=== PATIENT | male | born 1950 | race Two or more races ===

== ENCOUNTER 2019-09-15 10:21 | Outpatient (CLI) | payer MEDICARE, MEDICAID ==
[~2019-09-15 10:21] MED LIST: ATORVASTATIN CA40 MG ORAL; BENICAR HCT 401 EACH ORAL; BRINTELLIX10 MG PO; CYCLOBENZAPRINE10 MG ORAL; GABAPENTIN100 MG ORAL; IBUPROFEN200 MG ORAL; TRADJENTA5 MG PO
[2019-09-15 10:30] VITALS: BP 126/76
[2019-09-15] MEDS ORDERED: AMLODIPINE BESY10 MG ORAL (13:38)
[2019-09-15] MEDS ORDERED: VITAMIN C500 M1 ORAL (13:38)
[2019-09-15] MEDS ORDERED: FIBER0.52 GM PO (13:38)
[2019-09-15] MEDS ORDERED: MELOXICAM15 MG PO (13:38)
--- NOTE | 2019-09-15 21:00 | Consultation ---
DATE OF CONSULTATION: 09/15/2019 CONSULTING PHYSICIAN: Silver Granda M.D. CHIEF COMPLAINT: Abdominal pain. HISTORY OF PRESENT ILLNESS: This is a 69-year-old male, very anxious, who came to the hospital very anxious that he is having GI issues. Apparently, one of his family members of colon cancer and he is worried that he might have a colon cancer. He complained of gas, abdominal pain, bloating, acid reflux, bilateral lower quadrant abdominal pain, stabbing pain. PAST MEDICAL HISTORY: 1. Hypercholesteremia. 2. Diverticulosis. 3. Gastritis. 4. GERD. 5. Arthritis. 6. High blood pressure. ALLERGIES: No known drug allergies. MEDICATIONS: Please see medication reconciliation list. FAMILY HISTORY: Noncontributory. SOCIAL HISTORY: The patient denies any prior history of alcohol use or IV drug use, but he is a smoker, smokes 1 pack per day. REVIEW OF SYSTEMS: A 10-point review of systems was performed and pertinent positives in the HPI. PHYSICAL EXAMINATION: VITAL SIGNS: Temperature 98.4, blood pressure 126/76, pulse is 74, and respirations 20. HEENT: Normocephalic and atraumatic. Sclerae anicteric. NECK: Supple. No evidence of obvious lymphadenopathy. CARDIOVASCULAR: Regular rhythm. Plus S1, S2. LUNGS: Clear to auscultation bilaterally. ABDOMEN: Positive bowel sounds. Soft and nontender. No rebound. No guarding. No peritoneal sign. EXTREMITIES: No cyanosis, no clubbing, no edema. ASSESSMENT AND PLAN: This is a 69-year-old male with past medical history of GERD, gastritis, diverticulosis, who presented with complaint of abdominal pain, anxious, worried that he might have a colon malignancy. The patient was reassured. Given his age of 69 and recurrent abdominal pain, we will schedule him to get an endoscopy and colonoscopy. The patient was given instruction for colonoscopy. The prep was explained to him and he is planning to come this Saturday. Silver Granda M.D. DR: Rachel JOB#: [id number] CC:
== END 2019-09-15 12:51 | disposition home or self-care (01) ==
LOC: PAN 10:21
DX: R10.9 Unspecified abdominal pain (principal); E78.00 Pure hypercholesterolemia, unspecified; K57.90 Diverticulosis of intestine, part unspecified, without perforation or abscess without bleeding; K21.9 Gastro-esophageal reflux disease without esophagitis; M19.90 Unspecified osteoarthritis, unspecified site; R14.0 Abdominal distension (gaseous)
CPT/HCPCS: 99212

== ENCOUNTER 2019-09-18 09:56 | Day surgery (SDC) | payer MEDICARE, MEDICAID ==
[~2019-09-18] VITALS: Ht 170.2 cm; Wt 70.3 kg
[2019-09-18] VITALS (10 sets, daily range): BP systolic 115–143; BP diastolic 62–89
[~2019-09-18 09:56] MED LIST changes: +AMLODIPINE BESY10 MG ORAL; +FIBER0.52 GM PO; +MELOXICAM15 MG PO; +VITAMIN C500 M1 ORAL
[2019-09-18] MEDS ORDERED: Lidocaine 1% MPF 10mg/ml 5ml ONE (11:00)
[2019-09-18] MEDS ORDERED: LR 1000ml ONE (11:00)
[2019-09-18] MEDS ORDERED: Propofol 200mg/20ml IV ONE (11:00)
--- NOTE | 2019-09-18 11:09 | Short Stay Surgery H&P ---
History of Present Illness History of Present Illness Chief Complaint see recent office note HPI Paul John is a 69 year old male who was admitted on for Gerd, Colon Screening Patient History Allergies: Coded Allergies: No Known Allergies (Unverified , 09/28/15) Medication History Scheduled Amlodipine Besylate* (Amlodipine Besylate*), 10 MG ORAL DAILY, (Reported) Ascorbic Acid* (Vitamin C*), 1,000 MG ORAL DAILY, (Reported) Atorvastatin Calcium* (Atorvastatin Calcium*), 40 MG ORAL BEDTIME, (Reported) Linagliptin (Tradjenta), 5 MG PO DAILY, (Reported) Meloxicam* (Meloxicam*), 15 MG PO DAILY, (Reported) Olmesartan/Hydrochlorothiazide 40-12.5MG (Benicar Hct 40-12.5 Mg Tablet), 1 TAB ORAL DAILY, (Reported) Psyllium Husk (Fiber), 0.52 GM PO DAILY, (Reported) Vortioxetine Hydrobromide (Brintellix), 10 MG PO DAILY, (Reported) Discontinued Medications Cyclobenzaprine Hcl* (Flexeril*), 5 MG ORAL DAILY, (Reported) Discontinued Reason: MD discontinued med Gabapentin* (Gabapentin*), 100 MG ORAL BID, (Reported) Discontinued Reason: MD discontinued med Ibuprofen (Ibuprofen*), 800 MG ORAL DAILY, (Reported) Discontinued Reason: MD discontinued med Physical Exam Vital Signs Last Vital Signs Date Time Temp Pulse Resp B/P (MAP) Pulse Ox O2 Delivery O2 Flow Rate FiO2 09/18/19 10:52 Room Air 09/18/19 10:36 97.9 74 20 125/62 100 Plan Attestation Are the patient's medical conditions optimized for surgery? Silver Granda MD Sep 18, 2019 11:09
--- NOTE | 2019-09-18 11:09 | Pre-Procedure Note/Attestation ---
Pre-Procedure Note/Attestation Complete Prior to Procedure Planned Procedure: not applicable Procedure Narrative: esophagogastroduodenoscopy and colonoscopy Indications for Procedure Pre-Operative Diagnosis: wt loss Attestation I attest that I discussed the nature of the procedure; its benefits; risks and complications; and alternatives (and the risks and benefits of such alternatives ), prior to the procedure, with the patient (or the patient's legal corporate sales representative). I attest that, if there was a reasonable possibility of needing a blood transfusion, the patient (or the patient's legal corporate sales representative) was given the [facility] standardized written summary, pursuant to the [employer] [place] Blood Safety Act ([place] Health and Safety Code # 1645, as amended). I attest that I re-evaluated the patient just prior to the surgery and that there has been no change in the patient's H&P, except as documented below: Silver Granda MD Sep 18, 2019 11:09
--- NOTE | 2019-09-18 11:23 | Anethesia Preoperative Eval ---
Anesthesia Pre-op PMH/ROS General Date of Evaluation: Sep 18, 2019 Time of Evaluation: 11:01 Anesthesiologist: KARYNA Castro ASA Score: ASA 2 Mallampati Score Class I : Soft palate, uvula, fauces, pillars visible Class II: Soft palate, uvula, fauces visible Class III: Soft palate, base of uvula visible Class IV: Only hard plate visible Mallampati Classification: Class II Surgeon: Jesus Alberto Diagnosis: GERD, colon screening Surgical Procedure: EGD, colonosocpy Anesthesia History: none Social History: current smoker Allergies: Coded Allergies: No Known Allergies (Unverified , 09/28/15) Patient NPO?: Yes NPO Date: Sep 18, 2019 NPO Time: 00:00 Past Medical History Cardiovascular: Reports: HTN, other - Hypercholesterolemia; Denies: CAD, VT, valve dz, arrhythmia Pulmonary: Denies: asthma, COPD, PEPE, other Gastrointestinal/Genitourinary: Reports: GERD; Denies: CRI, ESRD, other Neurologic/Psychiatric: Reports: TIA, other - fibromyalgia; TIA; Denies: dementia, CVA, depression/anxiety Endocrine: Reports: DM - borderline, not on meds; Denies: hypothyroidism, steroids, other HEENT: Denies: cataract (L), cataract (R), glaucoma, AGDAAGUX (L), AGDAAGUX (R), other Hematology/Immune: Denies: anemia, DVT, bleeding disorder, other Musculoskeletal/Integumentary: Reports: other - chronic loewr back pain; Denies: OA, RA, DJD, DDD, edema PMH Narrative: as noted above PSxH Narrative: cholecystectomy, hiatal hernia repair Anesthesia Pre-op Phys. Exam Physician Exam Last Vital Signs Date Time Temp Pulse Resp B/P (MAP) Pulse Ox O2 Delivery O2 Flow Rate FiO2 09/18/19 10:52 Room Air 09/18/19 10:36 97.9 74 20 125/62 100 Constitutional: NAD Neurologic: other - alert & oriented x 3 Cardiovascular: RRR Respiratory: CTA Gastrointestinal: S/NT/ND Airway Exam Mallampati Score: Class II Neck: FROM TMD: > 3 FB ROM: full Teeth: missing, broken Dentures: no upper, no lower Anesthesia Pre-op A/P Studies Pre-op Studies: EKG - NSR, left fascicular block Risk Assessment & Plan Assessment: ASA 2, ok to proceed Plan: MAC Status Change Before Surgery: No Pre-Antibiotics Given Within 1 Hr of Incision: Paloma Nicholas CRNA Sep 18, 2019 11:23
--- NOTE | 2019-09-18 11:32 | Immediate Post-Op Evaluation ---
Immediate Post-Op Evalulation Immediate Post-Op Evalulation Procedure: EGD, colonoscopy, polypectomy Date of Evaluation: Sep 18, 2019 Time of Evaluation: 11:51 IV Fluids: LR 500 ml Blood Pressure Systolic: 106 Blood Pressure Diastolic: 71 Pulse Rate: 83 Respiratory Rate: 16 O2 Sat by Pulse Oximetry: 99 Temperature (Fahrenheit): 97.6 Pain Score (1-10): 0 Nausea: No Vomiting: No Complications none Patient Status: awake, reacts, patent Hydration Status: adequate Given Within 1 Hr of Incision: Paloma Nicholas CRNA Sep 18, 2019 11:32
--- NOTE | 2019-09-18 11:52 | 48 Hour Post Anesthesia Eval ---
Post Anesthesia Evaluation Procedure: EGD, colonoscopy, polypectomy Date of Evaluation: Sep 18, 2019 Time of Evaluation: 11:52 Blood Pressure Systolic: 115 0: 70 Pulse Rate: 70 Respiratory Rate: 17 Temperature (Fahrenheit): 97.6 O2 Sat by Pulse Oximetry: 100 Airway: patent Nausea: No Vomiting: No Pain Intensity: 0 Hydration Status: adequate Cardiopulmonary Status: stable Mental Status/LOC: patient returned to baseline Follow-up Care/Observations: per GI Post-Anesthesia Complications: none Follow-up care needed: N/A Paloma Barfield CRNA Sep 18, 2019 11:52
--- NOTE | 2019-09-18 11:52 | Endoscopy Procedure Note ---
Endoscopy Procedure Note General Indication for Procedure: wt loss Procedures Performed: EGD, colonoscopy Operative Findings/Diagnosis: diverticulosis, 3 polyps Specimen: yes Pt Tolerated Procedure Well: Yes Estimated Blood Loss: none Anesthesia Anesthesiologist: ana luisa Anesthesia: MAC Inserted Devices Implant(s) used?: No Quality Quality of Bowel Preparation: Good Did scope reach the cecum?: Yes Was there any complications?: No GI Core Measures 50 yrs or older w/o bx or poly: No 10yrs. F/U recommended: Yes If not recommended, why?: Above average risk 18 years or older w/prev. colo: No Silver Granda MD Sep 18, 2019 11:52
--- NOTE | 2019-09-18 17:00 | Procedure Note ---
DATE OF PROCEDURE: 09/18/2019 SURGEON: Silver Granda M.D. PROCEDURE: Upper endoscopy with biopsy and colonoscopy with biopsy. ANESTHESIA: Per Paloma TRONCOSO. INSTRUMENT: Olympus adult flexible upper endoscope and colonoscope. INDICATIONS: Screening colonoscopy evaluation, weight loss, GERD, and abdominal pain. REASON FOR PROCEDURE: The procedure, risks, benefits, and possible consequences, including hemorrhage, aspiration, perforation and infection, and alternative treatments, were explained to the patient/legal guardian by Dr. Silver Granda and the patient/legal guardian understood and accepted these risks. PROCEDURE IN DETAIL: After informed consent was obtained and the patient was adequately sedated, Olympus upper endoscope was advanced from mouth into the second portion of the duodenum and retroflexion was performed in the stomach. The patient has evidence of two ulcerations in the esophagus, one right at the GE junction and one few centimeter above the GE junction. No significant other esophagitis. Biopsy from one of the esophageal ulcers were obtained. In the stomach, there was diffuse gastritis. Random biopsy from antrum was obtained to rule out H. pylori infection. At this time, the upper endoscope was retrieved and the patient was turned over for colonoscopy. First, rectal exam was performed, which was positive for internal hemorrhoids. Then, the scope was advanced from rectum into the cecum documented by appendix orifice, ileocecal valve, and right upper quadrant palpation. Quality of prep was very good. The patient had evidence of diverticulosis, both in the right and left colon, more significant in the sigmoid area. The patient had three polyps, one in the ascending and two in the rectosigmoid, all removed with cold biopsy forceps technique. Retroflexion of the rectum showed evidence of internal hemorrhoids. SUMMARY OF FINDINGS: 1. Two esophageal ulcerations, status post biopsy. 2. Gastritis, status post biopsy. 3. Three colonic polyps removed. 4. Diverticulosis. 5. Internal hemorrhoids. RECOMMENDATIONS: 1. Follow biopsy results and treat accordingly. 2. We recommend repeat colonoscopy in three years given three polyps. Silver Granda M.D. DR: HEATHER JOB#: [id number] CC:
== END 2019-09-18 13:05 | disposition home or self-care (01) ==
LOC: GAS 09:56
DX: Z12.11 Encounter for screening for malignant neoplasm of colon (principal); K21.9 Gastro-esophageal reflux disease without esophagitis; R63.4 Abnormal weight loss; R10.9 Unspecified abdominal pain; K22.10 Ulcer of esophagus without bleeding; K29.70 Gastritis, unspecified, without bleeding; K63.5 Polyp of colon; K57.90 Diverticulosis of intestine, part unspecified, without perforation or abscess without bleeding; K64.8 Other hemorrhoids; D12.2 Benign neoplasm of ascending colon
CPT/HCPCS: 43239; 45380; 93005; J2704; J7120; 94003; 94150

== ENCOUNTER 2019-10-01 13:32 | Outpatient (CLI) | payer MEDICARE, MEDICAID ==
[2019-10-01 13:48] VITALS: BP 123/65
--- NOTE | 2019-10-01 14:11 | General Progress Note ---
Assessment/Plan Assessment/Plan: SUMMARY OF FINDINGS: 1. Two esophageal ulcerations, status post biopsy. 2. Gastritis, status post biopsy. 3. Three colonic polyps removed. 4. Diverticulosis. 5. Internal hemorrhoids. RECOMMENDATIONS: 1. biopsy results reviewed 2. We recommend repeat colonoscopy in three years given three polyps. plan roach CT to eval for wt loss Subjective ROS Limited/Unobtainable: Yes Allergies: Coded Allergies: No Known Allergies (Unverified , 09/28/15) Objective Last 24 Hour Vital Signs Date Time Temp Pulse Resp B/P (MAP) Pulse Ox O2 Delivery O2 Flow Rate FiO2 10/01/19 13:48 98.6 75 16 123/65 (84) 95 General Appearance: alert EENT: normal ENT inspection Neck: supple Cardiovascular: normal rate Respiratory/Chest: decreased breath sounds Abdomen: normal bowel sounds, non tender, soft Extremities: non-tender Silver Granda MD Oct 01, 2019 14:11
== END 2019-10-01 15:32 | disposition home or self-care (01) ==
LOC: PAN 13:32
DX: K22.10 Ulcer of esophagus without bleeding (principal); K29.70 Gastritis, unspecified, without bleeding; K63.5 Polyp of colon; K57.90 Diverticulosis of intestine, part unspecified, without perforation or abscess without bleeding; K64.8 Other hemorrhoids
CPT/HCPCS: 99212

== ENCOUNTER → 2019-10-07 | Outpatient (CLI) | payer MEDICARE, MEDICAID ==
[2019-10-07 08:56] LABS: ANION GAP 7 mmol/L (5-15); BLOOD UREA NITROGEN 12 mg/dL (7-18); CALCIUM 9.3 MG/DL (8.5-10.1); CARBON DIOXIDE 29 MMOL/L (21-32); CHLORIDE 103 MMOL/L (98-107); CREATININE 1.2 MG/DL (0.55-1.30); POTASSIUM 4.3 MMOL/L (3.5-5.1); SODIUM 138 MMOL/L (136-145)
--- NOTE | 2019-10-08 09:22 | Diagnostic Imaging Report ---
INDICATION: Weight loss TECHNIQUE: Continuous helical transaxial imaging of the chest, abdomen and pelvis was obtained from the lung bases to the pubic symphysis during intravenous contrast administration. Multiple phases of enhancement obtained. Coronal 2-D reformats were also obtained. Study obtained in a Siemens sensation [address] Automatic Exposure Control was utilized. Total Dose length Product (DLP): 421.[address] Dose Index Volume (CTDIvol): 89.2 mGy COMPARISON: None FINDINGS: CT CHEST: There is a small precarinal node with a focus of calcification within it. Aorta is ectatic and calcified. The lungs demonstrate areas of hyperlucency without any perceptible wall consistent with emphysema. These predominate in the upper lobes but findings are also demonstrated in the lower lobes. At the periphery of the lungs there are also mild paraseptal lines or interstitial lines present. This is not seen in the context of pulmonary venous congestion. Nature of the interstitial opacities is not known but the could be mild degree of scarring or fibrosis. There is no honeycombing. The emphysematous changes appear primarily centrilobular. There are no paraseptal bulla present. A few scattered calcifications are present within the lungs likely calcified granulomata. CT ABDOMEN & PELVIS: There is breathing motion which limits evaluation of the abdomen. There are multiple bilateral renal cysts of varying size. There is no hydronephrosis. Liver is grossly unremarkable. Gallbladder is absent. Cholecystectomy clips noted. Biliary ducts are mildly prominent which is probably normal. Spleen is unremarkable. Pancreas is unremarkable. Adrenal glands are unremarkable. Aorta shows mural calcium mild to moderate in degree. There is no aneurysm of aorta. 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 Urinary bladder is unremarkable. Mildly distended loops of small bowel are demonstrated within the abdomen. These are opacified by contrast material. There is one segment that shows a mild wall thickening along the upper abdomen anteriorly (image [id number]/axial series 7). This is within the proximal jejunum. There is no free fluid. Osseous structures are unremarkable. IMPRESSION: Abnormally distended segment of proximal jejunum in the anterior mid to upper abdomen also showing wall thickening. Nature of this is not known and could be inflammatory or infectious enteritis. Evaluation is limited due to breathing motion. Other possibilities are not excluded. Further evaluation is recommended. Pulmonary emphysema. Mild peripheral scarring involving the lungs. Old granulomatous disease. Arterial vascular disease. Status post cholecystectomy. Multiple bilateral renal cysts. 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 The CT scanner at [facility] is accredited by the [employer] and the scans are performed using dose optimization techniques as appropriate to a performed exam including Automatic Exposure control.
== END | disposition home or self-care (01) ==
LOC: CAT 08:43
DX: R63.4 Abnormal weight loss (principal)
CPT/HCPCS: 36415; 71260; 74177; 80048; Q9967

== ENCOUNTER 2019-10-15 14:59 | Outpatient (CLI) | payer MEDICARE, MEDICAID ==
--- NOTE | 2019-10-15 15:19 | General Progress Note ---
Assessment/Plan Assessment/Plan: Assessment/Plan Assessment/Plan: SUMMARY OF FINDINGS: 1. Two esophageal ulcerations, status post biopsy. 2. Gastritis, status post biopsy. 3. Three colonic polyps removed. 4. Diverticulosis. 5. Internal hemorrhoids. RECOMMENDATIONS: 1. biopsy results reviewed 2. We recommend repeat colonoscopy in three years given three polyps. CT reviewed needs capsule endoscopy Subjective ROS Limited/Unobtainable: Yes Allergies: Coded Allergies: No Known Allergies (Unverified , 09/28/15) Objective General Appearance: alert EENT: normal ENT inspection Neck: supple Cardiovascular: normal rate Respiratory/Chest: lungs clear Abdomen: normal bowel sounds, non tender, soft Extremities: non-tender Silver Granda MD Oct 15, 2019 15:19
== END 2019-10-15 16:01 | disposition home or self-care (01) ==
LOC: PAN 14:59
DX: K63.5 Polyp of colon (principal); K29.70 Gastritis, unspecified, without bleeding; K57.90 Diverticulosis of intestine, part unspecified, without perforation or abscess without bleeding; K64.8 Other hemorrhoids; K22.10 Ulcer of esophagus without bleeding
CPT/HCPCS: 99212

== ENCOUNTER 2019-10-22 08:06 | Outpatient (CLI) | payer MEDICARE, MEDICAID ==
[2019-10-22 08:17] VITALS: BP 100/63
--- NOTE | 2019-10-28 19:44 | Procedure Note ---
DATE OF PROCEDURE: 10/22/2019 SURGEON: Silver Granda M.D. PROCEDURE: Capsule endoscopy. INDICATION: Evaluation of weight loss, abnormal CT findings showing small-intestine wall thickening. The procedure, risks, benefits, and possible consequences, including hemorrhage, aspiration, perforation and infection, and alternative treatments, were explained to the patient/legal guardian by Dr. Silver Granda and the patient/legal guardian understood and accepted these risks. PROCEDURE IN DETAIL: The patient swallowed the capsule. Capsule spent only 2 minutes in the stomach before it entered the small bowel and spent 12 hours and 32 minutes in the small bowel before it entered the colon. We can see the capsule spent good time in the small intestine for over 12 hours, but the prep quality was fair. There was some area that was covered by the brownish colored fluid, so those areas were limited for examination. There was no obvious bleeding seen in the examination. No obvious blood or blood products were seen. There was one area at about 7 hours and 2 minutes into the exam, which means in the jejunum. There was one small area that was suspicious for either food floating in the lumen versus raised ulcerative lesion, but I doubt it most probably looks like a floating food material. There was no bleeding again in that area and there was only one focal area. It is not consistent with what on the CT, which showed a segment of the small intestine. This one was just one focal area at 7 hours and 2 minutes. The capsule entered the colon at the end of the study, which was 12 hours and 35 minutes. SUMMARY OF FINDINGS: No obvious bleeding. No obvious malignancy. One focal area of questionable lesion at 7 hours and 2 minutes, which looks like most probably a floating food material versus a lesion. RECOMMENDATION: The patient already had full workup including endoscopy, colonoscopy, CT, and now capsule endoscopy. The patient needs to follow in the office for further workup and managing the weight loss. Silver Granda M.D. DR: HEATHER JOB#: [id number] CC:
== END 2019-10-22 10:06 | disposition home or self-care (01) ==
LOC: PAN 08:06
DX: R63.4 Abnormal weight loss (principal)
CPT/HCPCS: 91110; G0463; 99212

== ENCOUNTER 2019-11-09 12:58 | Outpatient (CLI) | payer MEDICARE, MEDICAID ==
--- NOTE | 2019-11-09 13:37 | General Progress Note ---
Assessment/Plan Assessment/Plan: Assessment/Plan Assessment/Plan: Assessment/Plan Assessment/Plan: SUMMARY OF FINDINGS: 1. Two esophageal ulcerations, status post biopsy. 2. Gastritis, status post biopsy. 3. Three colonic polyps removed. 4. Diverticulosis. 5. Internal hemorrhoids. 6. Emphysema RECOMMENDATIONS: 1. biopsy results reviewed 2. We recommend repeat colonoscopy in three years given three polyps. 3. capsule endoscopy reviewed 4. CT reviewed RTC one month for Weight check Subjective ROS Limited/Unobtainable: Yes Allergies: Coded Allergies: No Known Allergies (Unverified , 09/28/15) Objective General Appearance: alert EENT: PERRL/EOMI Neck: supple Cardiovascular: normal rate Respiratory/Chest: lungs clear Abdomen: normal bowel sounds, non tender, soft Extremities: normal range of motion Silver Granda MD Nov 09, 2019 13:37
[2019-11-09 15:05] VITALS: BP 125/65
== END 2019-11-09 15:18 | disposition home or self-care (01) ==
LOC: PAN 12:58
DX: K22.10 Ulcer of esophagus without bleeding (principal); K29.70 Gastritis, unspecified, without bleeding; K63.5 Polyp of colon; K57.90 Diverticulosis of intestine, part unspecified, without perforation or abscess without bleeding; K64.8 Other hemorrhoids; J43.9 Emphysema, unspecified
CPT/HCPCS: 99212